=== PATIENT | male | born 1955 | race Caucasian/White ===

== ENCOUNTER 2025-07-17 18:38 | Inpatient (IN) | payer MEDICARE, OTHER ==
[~2025-07-17 18:38] MED LIST: Iopamidol-370 76% 500 ML MDV (1 ML CHARGE) ONE
[2025-07-17 19:50] LABS: Hematocrit 14.6 % (42.0-52.0); Hemoglobin 4.0 g/dL (14.0-18.0); Mean Corpuscular Hemoglobin 29.9 pg (27.0-31.0); Mean Corpuscular Volume 109.0 fL (78.0-98.0); Platelet Count 189 10x3/uL (130-400); Red Blood Cell (RBC) Count 1.34 mill/uL (4.70-6.10); White Blood Cell (WBC) Count 4.23 10x3/uL (4.8-10.8)
[2025-07-17 20:02] LABS: ALT (SGPT) Less than 7 U/L (Less than 45); AST (SGOT) 14 U/L (11-34); Albumin 2.8 g/dL (3.1-4.5); Alkaline Phosphatase 59 U/L (40-110); Anion Gap 11 mmol/L (10-20); BUN (Urea Nitrogen) 24 mg/dL (8.4-25.7); Bilirubin, Total 0.6 mg/dL (0.3-1.2); Calc. Creatinine Clearance 0 mL/min (70-130); Calcium 7.7 mg/dL (7.8-10.44); Carbon Dioxide 19 mmol/L (23-31); Chloride 110 mmol/L (98-107); Globulin 1.9 g/dL (2.4-3.5); Glucose 117 mg/dL (80-115); Potassium 4.7 mmol/L (3.5-5.1); Sodium 135 mmol/L (136-145)
[2025-07-17 20:13] LABS: Anisocytosis MODERATE=16-30 cells HPF (0-5); Macrocytosis MODERATE=16-30 cells HPF (0-5); Microcytosis SLIGHT = 6-15 cells HPF (0-5); Nucleated RBC (Manual Ct) 1 % (0); Platelet Adequacy Comment Platelets Normal; Polychromasia SLIGHT = 2-3 cells HPF (0-2); Smudge Cells 6.5 %; Stomatocytes SLIGHT = 2-5 cells HPF (0-1)
[2025-07-17] MEDS ORDERED: Ondansetron PF 4 MG/2 ML Vial IVP PRN (23:30)
[2025-07-17] MEDS ORDERED: Pantoprazole 40 MG VIAL ONE (23:50)
[2025-07-17] MEDS ORDERED: Acetaminophen 325 MG TAB PO PRN (23:53)
[2025-07-18] MEDS ORDERED: Albuterol 2.5 MG (3 mL) NEB NEB PRN (00:54)
[2025-07-18] MEDS: Ipratropium Bromide 2.5 ml Neb NEB SCH (02:20)
[2025-07-18 02:30] VITALS: BMI 25.6
[2025-07-18 05:49] LABS: Anion Gap 8 mmol/L (10-20); BUN (Urea Nitrogen) 20 mg/dL (8.4-25.7); Calc. Creatinine Clearance 62 mL/min (70-130); Calcium 7.6 mg/dL (7.8-10.44); Carbon Dioxide 21 mmol/L (23-31); Chloride 111 mmol/L (98-107); Glucose 97 mg/dL (80-115); Hematocrit 24.2 % (42.0-52.0); Hemoglobin 7.5 g/dL (14.0-18.0); Mean Corpuscular Hemoglobin 28.7 pg (27.0-31.0); Mean Corpuscular Volume 92.7 fL (78.0-98.0); Platelet Count 139 10x3/uL (130-400); Potassium 4.4 mmol/L (3.5-5.1); Red Blood Cell (RBC) Count 2.61 mill/uL (4.70-6.10); Sodium 136 mmol/L (136-145); White Blood Cell (WBC) Count 4.22 10x3/uL (4.8-10.8)
[2025-07-18 06:25] LABS: #Basophils 0.05 10x3/uL (0.0-0.2); #Eosinophils Less than 0.03 10x3/uL (0.0-0.7); #Monocytes 0.50 10x3/uL (0.11-0.59); #Neutrophils 0.96 10x3/uL (1.40-6.50); %Basophils 1.2 % (0.0-1.0); %Eosinophils 0.5 % (0.0-10.0); %Lymphocytes 63.3 % (21.0-51.0); %Monocytes 11.8 % (0.0-10.0); %Neutrophils 22.7 % (42.0-75.0)
[2025-07-18 06:26] LABS: Anisocytosis SLIGHT = 6-15 cells HPF (0-5); Macrocytosis SLIGHT = 6-15 cells HPF (0-5); Platelet Adequacy Comment Platelets Normal; Polychromasia SLIGHT = 2-3 cells HPF (0-2)
[2025-07-18 07:45] LABS: INR-International Normal Ratio 1.3; Prothrombin Time 15.8 sec (12.0-14.7)
[2025-07-18 07:46] LABS: PTT 36.8 sec (22.9-36.1)
[2025-07-18] MEDS: Pantoprazole 40 MG VIAL IVP SCH (08:11)
[2025-07-18] MEDS: Mupirocin 1 GM TUBE TP SCH (08:11)
[2025-07-18 11:02] LABS: Hematocrit 23.7 % (42.0-52.0); Hemoglobin 7.2 g/dL (14.0-18.0)
[2025-07-18] MEDS ORDERED: Lidocaine 1% PF 5 ML VIAL ONE (11:11)
[2025-07-18] MEDS ORDERED: PROPOFOL 200 MG/20 ML VIAL ONE (11:19)
[2025-07-18] MEDS: GoLYTELY 4,000 ml Bottle PO SCH (18:12)
[2025-07-18 18:44] LABS: Hematocrit 26.0 % (42.0-52.0); Hemoglobin 7.8 g/dL (14.0-18.0)
[2025-07-19 05:42] LABS: #Basophils 0.03 10x3/uL (0.0-0.2); #Eosinophils Less than 0.03 10x3/uL (0.0-0.7); #Monocytes 0.40 10x3/uL (0.11-0.59); #Neutrophils 0.97 10x3/uL (1.40-6.50); %Basophils 1.0 % (0.0-1.0); %Eosinophils 0.3 % (0.0-10.0); %Lymphocytes 55.1 % (21.0-51.0); %Monocytes 12.7 % (0.0-10.0); %Neutrophils 30.9 % (42.0-75.0); Hematocrit 24.1 % (42.0-52.0); Hemoglobin 7.2 g/dL (14.0-18.0); Mean Corpuscular Hemoglobin 28.2 pg (27.0-31.0); Mean Corpuscular Volume 94.5 fL (78.0-98.0); Platelet Count 142 10x3/uL (130-400); Red Blood Cell (RBC) Count 2.55 mill/uL (4.70-6.10); White Blood Cell (WBC) Count 3.14 10x3/uL (4.8-10.8)
[2025-07-19 05:48] LABS: Anion Gap 10 mmol/L (10-20); BUN (Urea Nitrogen) 15 mg/dL (8.4-25.7); Calc. Creatinine Clearance 72 mL/min (70-130); Calcium 7.9 mg/dL (7.8-10.44); Carbon Dioxide 22 mmol/L (23-31); Chloride 111 mmol/L (98-107); Glucose 94 mg/dL (80-115); Potassium 4.2 mmol/L (3.5-5.1); Sodium 139 mmol/L (136-145)
[2025-07-19 07:27] VITALS: TEMP 98.1
[2025-07-19] MEDS ORDERED: Lidocaine 2% PF 100 mg/5 ml Syringe ONE (09:07)
[2025-07-19] MEDS ORDERED: PHENYLEPHRINE-NS 100 MCG/ML 10 ML SYRINGE ONE (09:12)
[2025-07-19 10:23] VITALS: BP 110/73
[2025-07-21] MEDS ORDERED: FLU (Fluad Triv) 25-26 (65UP)PF 45 MCG/0.5 ML Syringe IM ONE (09:00)
== END 2025-07-19 15:30 | disposition home or self-care (01) | DRG 378 ==
LOC: ERS 18:38 → CCU 23:19 → T4-B 07-18 15:54
PROVIDERS: ADMIT Internal Medicine; ATTEND Student in an Organized Health Care Education/Training Program
PROC: 30233N1 Transfusion of Nonautologous Red Blood Cells into Peripheral Vein, Percutaneous Approach (ICD-10-PCS; 2025-07-17)
PROC: 0DB68ZX Excision of Stomach, Via Natural or Artificial Opening Endoscopic, Diagnostic (ICD-10-PCS; principal; 2025-07-18)
PROC: 0DBL8ZZ Excision of Transverse Colon, Via Natural or Artificial Opening Endoscopic (ICD-10-PCS; 2025-07-18)
PROC: 0W3P8ZZ Control Bleeding in Gastrointestinal Tract, Via Natural or Artificial Opening Endoscopic (ICD-10-PCS; 2025-07-19)
PROC: 3E033XZ Introduction of Vasopressor into Peripheral Vein, Percutaneous Approach (ICD-10-PCS; 2025-07-19)
DX: K55.21 Angiodysplasia of colon with hemorrhage (principal); D62 Acute posthemorrhagic anemia; I50.32 Chronic diastolic (congestive) heart failure; N17.9 Acute kidney failure, unspecified; K26.9 Duodenal ulcer, unspecified as acute or chronic, without hemorrhage or perforation; K25.9 Gastric ulcer, unspecified as acute or chronic, without hemorrhage or perforation; Z88.0 Allergy status to penicillin; J44.9 Chronic obstructive pulmonary disease, unspecified; Z90.49 Acquired absence of other specified parts of digestive tract; Z98.890 Other specified postprocedural states; F17.210 Nicotine dependence, cigarettes, uncomplicated; N18.9 Chronic kidney disease, unspecified; F14.10 Cocaine abuse, uncomplicated; D63.1 Anemia in chronic kidney disease; Z91.148 Patient's other noncompliance with medication regimen for other reason; D53.9 Nutritional anemia, unspecified; I48.0 Paroxysmal atrial fibrillation; K57.30 Diverticulosis of large intestine without perforation or abscess without bleeding; K64.8 Other hemorrhoids
CPT/HCPCS: 36415; 36430; 71045; 74177; 80048; 80053; 82607; 83880; 84484; 85025; 85610; 85730; 86850; 86900; 86901; 88305; 88342; 93005; 96374; J2003; J2470; J2704; J7030; P9016; Q9967